=== PATIENT | female | born 1995 | race Caucasian/White ===

== ENCOUNTER → 2016-12-21 13:30 | Observation (INO) ==
[2016-12-21 12:50] LABS: Bilirubin,Urine Negative (Negative); Blood,Urine Negative (Negative); Clarity,Urine Cloudy (Clear); Color,Urine Yellow (Yellow); Glucose,Urine (UA) 100 mg/dL (Normal); Ketones,Urine Negative (Negative); Leukocyte Esterase,Urine Negative (Negative); Nitrite,Urine Negative (Negative); Protein,Urine Negative (Neg-Trace); Urobilinogen,Urine Normal (Normal)
[2016-12-21 12:52] LABS: Hyaline Casts,Urine None Seen per lpf (None-Few); RBC,Urine 0-3 per hpf (0-3); Squamous Epithelial Cell,Urine Many per lpf (None-Few)
[2016-12-21 13:05] LABS: Bacteria,Urine Few per hpf (None-Few)
--- NOTE | 2016-12-21 13:16 | Discharge Summary ---
Date of Encounter: 12/21/16 Time of Encounter: 13:16 - Discharge Diagnosis (1) Uterine contractions Priority: Primary Status: Acute Comments: Patient c/o irregular contractions for past 12 hours and diarrhea and some vomiting States positive movement. Denies headache, vaginal bleeding, vaginal discharge, epigastric pain, and visual disturbances. She is currently being treated for a UTI with antibiotics Urinalysis insignificant findings continue course of antibiotics Follow up in office as previously scheduled and as needed Discharge home with labor precautions and kick counts. (2) 35 weeks gestation of Priority: Secondary Status: Acute Comments: GBS collected. (3) NST (non-stress test) reactive Priority: Secondary Status: Acute Comments: FHTs 140's - 150's with moderate variability, 15 x 15 accels, and no decels TOCO 2 contractions noted. uterus palpated soft. Category I tracing - Discharge Medications Home Medications: Amoxicillin 875 mg PO BID #20 tablet 02/05/16 [Rx] Allergies/Adverse Reactions: Allergies No Known Allergies Allergy (Verified 06/05/16 23:09) Data Procedures and tests throughout hospitalization: Laboratory Tests 12/21/16 12:24 Urine Color Yellow Urine Clarity Cloudy A Urine pH 6.0 Ur Specific [place] 1.020 Urine Protein Negative Urine Glucose (UA) 100 H Urine Ketones Negative Urine Blood Negative Urine Nitrite Negative Urine Bilirubin Negative Urine Urobilinogen Normal Ur Leukocyte Esterase Negative Urine Microscopic RBC 0-3 Urine Microscopic WBC 3-5 H Ur Squamous Epith Cells Many H Urine Bacteria Few Hyaline Casts None Seen Ur Culture Indicated? NO Labs on day of discharge: Labs from last 24 hours 12/21/16 12:24 Urine Color Yellow Urine Clarity Cloudy A Urine pH 6.0 Ur Specific [place] 1.020 Urine Protein Negative Urine Glucose (UA) 100 H Urine Ketones Negative Urine Blood Negative Urine Nitrite Negative Urine Bilirubin Negative Urine Urobilinogen Normal Ur Leukocyte Esterase Negative Urine Microscopic RBC 0-3 Urine Microscopic WBC 3-5 H Ur Squamous Epith Cells Many H Urine Bacteria Few Hyaline Casts None Seen Ur Culture Indicated? NO Date of admission: 12/21/16 11:48 Primary care physician: PCP NO Discharging clinician: Lani Murillo Anticipated date of discharge: 12/21/16 - Patient Status Disposition: Home, Self-Care Condition: Good Functional capacity at discharge: independent ambulation Overall status at discharge: patient is back to baseline - Discharge Instructions Follow Up With: NO,PCP [Primary Care Provider] - Lani Murillo CNM [Advanced Practice Nurse] - Additional Instructions: LABOR AND DELIVERY DISCHARGE INSTRUCTIONS Signs and Symptoms to be Reported to your Doctor Immediately: * Sudden gush, continuous or intermittent lead of fluid from vagina (note the time of gush and color of fluid) * Onset of bright red vaginal bleeding with or without pain (if you had a vaginal exam during this visit you may notice some dark red spotting. This is normal.) * Lower abdominal cramping or backache that is premenstrual-like feeling. * More than 6 contractions in one hour. * Burning during urination, having to urinate more frequently or pain in your mid-back. * A change in the baby's activity. This could be an increase or decrease in activity. * Severe headache which does not go away with tylenol. * Sudden swelling in the face, hands, arms and/or legs. * Upper abdominal pain - sometimes associated with heartburn or nausea and is not relieved by Maalox, Mylanta or Tums. * Dizziness or blurred vision or visual disturbances (seeing stars/lights). * Kick Counts One hour after a meal, lay down on one side in a quiet place. Count the number of thomas the baby moves during an hour. If less than 6 movements, notify your physician. Diet: *Force fluids - 8-10 tall glasses of fluid per day. May include popsicles and jello. *Limit caffeine - this includes chocolate, coffee, tea, any soft drink containing such as all estephania, Omkar Yellow and Mountain Dew - Diet and Activity Activity: resume usual activities as tolerated Diet: regular diet Hospital Course P[facility] Time Attestation: Total time spent providing and/or coordinating discharge services: Time Spent: Less than 30 minutes Exam - Constitutional General appearance IM: cooperative, A&O X 3, pleasant - Respiratory Respiratory exam: Present: CTAB - Cardiovascular Cardiovascular exam IM: Present: RRR, +S1, +S2 - GI/Abdominal GI/Abdominal exam IM: normal bowel sounds, soft - Additional comments: Closed/thick/high per RN exam. - Extremities Exam Extremities exam IM: Present: normal capillary refill, normal inspection, radial pulses palpable and symetrical - Neurological Exam Neurological exam: alert, oriented X3, reflexes normal - VTE Reasons for not Prescribing Prophylaxis: Treatment not Indicated - Low risk for VTE
== END | disposition home or self-care (01) ==
LOC: 1NENULAB
PROVIDERS: ADMIT Obstetrics & Gynecology; ATTEND Obstetrics & Gynecology

== ENCOUNTER 2017-01-08 07:45 | Inpatient (IN) ==
[~2017-01-08 07:45] MED LIST: *HR* Nalbuphine 20 MG/ML AMPUL IVP PRN; Famotidine 20 MG/2 ML VIAL IVP PRN; Naloxone 0.4 MG/ML INJ IVP PRN; Ondansetron 4 MG/2 ML VIAL IVP PRN; Ringers Solution, Lactated 1,000 ML IVC SCH
--- NOTE | 2017-01-08 07:51 | OB/GYN History & Physical ---
Date of Encounter: 01/08/17 Time of Encounter: 07:47 Assessment and Plan (1) 38 weeks gestation of Current visit: Yes Status: Acute admit for delivery (2) Spontaneous rupture of membranes Current visit: Yes Status: Acute admit for delivery group B strep negative (3) Rubella non-immune status, antepartum Current visit: Yes Status: Acute MMR to be given prior to discharge History of Present Illness Chief complaint: SROM HPI: Ms. Rosales is a 21 year old female at 38w2d presents to labor and delivery with complaints of Spontaneous rupture of membranes. Patient reports water broke around 0530. Clear fluid. No vaginal bleeding. Denies feeling regular contractions. Patient reports +FM. Blood type: B Positive, Rubella: nonimmune, Hep B: nonreactive, GBS: Negative. Past Med Surg Social Fam HX - Past Medical History Source: patient Medical history: no medical history Psychiatric history: no psych history - Past Surgical History Surgical History: no surgical history - Social History Smoking Status: Former smoker Smokeless Tobacco Status: No Alcohol use: none Drug use: none Current living situation: Home - Independent Activity Level: Independent ambulation Recent Out of Country Travel Within the Last 8 Weeks: No Exposure or Possible Exposure to Illness During Travel: No - Family History Grandmother Living Status: Still Living Hx Family Cardiac Disorders: Yes Obstetrical History - Pregnancies : 1 Para: 0 Term: 0 : 0 Ab's: 0 Livin Medications and Allergies Ferrous Sulfate [Iron] 1 tab PO DAILY 01/08/17 [History] Vit/Iron Fumarate/FA [ Tablet] 1 tab PO DAILY 01/08/17 [History ] Allergies No Known Allergies Allergy (Verified 01/08/17 07:25) Review of System OB - Constitutional Constitutional ROS IM: no chills, no fever(s), no headache(s) - Cardiovascular Cardiovascular: no chest pain, no dyspnea, no edema, no lightheadedness, no palpitations, no pedal edema, no syncope - Respiratory Respiratory: no cough, no dyspnea - Gastrointestinal Gastrointestinal: no abdominal pain, no cramping, no diarrhea, no heartburn, no nausea, no vomiting - Genitourinary Genitourinary: vaginal discharge, no abnormal vaginal bleeding, no dysuria, no flank pain, no urinary frequency, no urinary hesitancy, no urinary incontinence , no urinary urgency, no vaginal odor Exam - Constitutional Constitutional: well developed, well nourished, no acute distress, average body habitus - HEENT HEENT: Normocephaly, Mucus Membranes Moist - Neck Neck exam: full ROM, supple - Lungs Respiratory exam: CTAB - Cardiovascular Cardiovascular exam: RRR, +S1, +S2 - Abdomen Abdomen: Present: bowel sounds normal, gravid, non tender - Extremities Extremities exam: full ROM, normal inspection Deep Tendon Reflex Grade: 2+ Normal - Cervix Dilation: 2 (PER RN) Effacement: 70 Station: -1 - Uterus Uterus exam: Present: normal size, normal contour - Anus/Rectum Anus/Rectum: Present: normal perianal skin - Comments Comments: FHR 125 bpm moderate variability +15x15 accels no decels noted. Contractions 2- 4 min apart. CAt. 1 tracing. Speculum exam: + pooling and + nitrazine. Results All other labs normal. - VTE Reasons for not Prescribing Prophylaxis: Treatment not Indicated - Low risk for VTE
[2017-01-08 08:14] LABS: Basophils % 0.3 %; Eosinophils # 0.1 K/mcL (0.0-0.6); Eosinophils % 0.4 %; Hematocrit 39.4 % (35.3-44.9); Hemoglobin 12.9 g/dL (11.5-15.4); Immature Granulocytes % 0.7 % (0-4); Lymphocytes % 15.1 %; Mean Corpuscular HGB Conc 32.7 g/dL (31.6-35.5); Mean Corpuscular Hemoglobin 30.1 pg (28.0-33.3); Mean Corpuscular Volume 91.8 fL (83.0-100.0); Monocytes # 0.9 K/mcL (0.0-1.3); Monocytes % 7.2 %; Neutrophils # 9.9 K/mcL (1.6-8.9); Platelet Count 192 K/mcL (140-400); Red Blood Count 4.29 M/mcL (3.82-4.97); Red Cell Distribution Width 13.4 % (11.5-14.5); Segmented Neutrophils % 76.3 %
--- NOTE | 2017-01-08 10:56 | OB Labor Progress Note ---
Date of Encounter: 01/08/17 Time of Encounter: 10:54 Labor Progress Note - Subjective Subjective: Patient nauseated at this time. FHR noted to decels and intrauterine resuscitation was started. - Cervix Cervix: 5/90/-1 - Heart Tones Heart Tones: 120 bpm moderate variability +15x15 accels prolonged decel noted. - [place]: 1-4 min apart - Interventions Interventions: SVE, FSE applied, O2 per mask, IV bolus started. Patient repositioned to left side. Dr. Mcclure notified - Plan Plan: Continue labor management.
--- NOTE | 2017-01-08 11:03 | Anesthesia Evaluation PreOp ---
Date of Encounter: 01/08/17 Time of Encounter: 11:04 - Past History Planned Operation: kalin Cardiac History: Denies any Significant Hx Pulmonary History: Former smoker [employer] History: Denies Any Significant HX Other Medical History: Denies Any Significant HX Anesthesia History: No Prior Anesthetic Complications, Past Anesthesia : Yes Alcohol Use: none Drug use: none Medications and Allergies Ferrous Sulfate [Iron] 1 tab PO DAILY 01/08/17 [History] Vit/Iron Fumarate/FA [ Tablet] 1 tab PO DAILY 01/08/17 [History ] Allergies No Known Allergies Allergy (Verified 01/08/17 07:25) - Meds/Allergy Pre-op Review Medications Reviewed: Yes Allergies Reviewed: Yes Beta Blockers on Current Med List: No (38 plus 2, ) Anesthesia Results - Labs 01/08/17 08:00 Anesthesia Exam O2 Sat Height 1.68 m Weight 84 kg Weight: 84 - HEENT Pupil (Motor): Pupils equal Mallampati: II Teeth: Normal Oral Opening: Greater than 3 - [employer] LOC: Oriented [employer] Motor: Normal RUE, Normal LUE, Normal RLE, Normal LLE, Normal Face [employer] Sensory: Normal: RUE, LUE, RLE, LLE, Face - Cardiac Rhythm: Regular Murmur: None JVD: No Carotid Bruit: No - Pulmonary Breath Sounds: bilateral Clear Respiratory Effort: Symmetrical Anesthesia Assess/Plan ASA Score: 2 Modified [place] Scale for Level of Consciousness: Cooperative, oriented, and tranquil Anesthetic Plan: Regional Monitoring Plan: Standard Monitors
[2017-01-08] MEDS ORDERED: *HR* FentaNYL (PF) 100 MCG/2 ML VIAL ONE (11:06)
[2017-01-08] MEDS ORDERED: *HR* Ropivacaine/PF 0.2% 10 ML AMPUL ONE (11:06)
[2017-01-08] MEDS ORDERED: Epidural Premix (fent/bupiv) 110 ML EP ONE ×2 (11:06→17:28)
[2017-01-08] MEDS ORDERED: Terbutaline 1 MG/ML VIAL SQ ONE ×2 (11:07→11:09)
[2017-01-08] MEDS ORDERED: *HR* FentaNYL (PF) 100 MCG/2 ML VIAL EP ONE (11:40)
[2017-01-08] MEDS ORDERED: *HR* Ropivacaine/PF 0.2% 10 ML AMPUL EP ONE (11:40)
[2017-01-08] MEDS ORDERED: EPHEDrine 50 MG/ML VIAL IVP PRN (11:40)
--- NOTE | 2017-01-08 11:44 | Anesthesia Procedures ---
Date of Encounter: 01/08/17 Time of Encounter: 11:42 Procedures: Anesthesia - Epidural/Spinal Patient ID/Chart reviewed: Yes Patient examined: Yes OB Eval: : 1 OB Eval: Hx Para: 0 OB Eval: Dilated at (cm): 5 OB Eval: Contractions: Non-stressed pattern Consent Obtained: Yes Supplemental Oxygen: Mask Supplemental Oxygen Rate (L/min): 6 Site Prep: Aseptic Technique Patient position: upright Local Anesthetic: Lidocaine 1% Amount of Local Anesthetic used: 3 Touhy Needle Gauge: 18 Touhy Needle Depth (cm): 6 Catheter Depth at Skin (cm): 12 Test Dose (1.5% Lido + Epi): Volume given (mls): 3 Test Dose Result: Negative Loading Dose: 0.25% Marcaine (mls): 6 Loading Dose: Fentanyl (mcg): 100 Loading Dose: Other: 2ml nss Loading Dose Administered: Thru Touhy Needle Infusion Med: 0.125% Bupivacaine w/ 2 mcg/ml Fentanyl Interspace Used: L2-L3 Loss of Resistance (ANDRZEJ): Yes Blood: No CSF: No
[2017-01-08] MEDS ORDERED: Epidural Premix (fent/bupiv) 110 ML EP SCH (11:45)
--- NOTE | 2017-01-08 12:36 | OB Labor Progress Note ---
Date of Encounter: 01/08/17 Time of Encounter: 12:33 Labor Progress Note - Subjective Subjective: Patient comfortable with epidural in place. Patient denies any questions or concerns. FSE not tracing, external EFM replaced on abdomen. - Cervix Cervix: 5.5/90/-1 - Heart Tones Heart Tones: 125 bpm moderate variability - [place]: 1-3.5 min apart - Interventions Interventions: SVE, repositioned - Plan Plan: Continue labor management.
--- NOTE | 2017-01-08 16:37 | OB Labor Progress Note ---
Date of Encounter: 01/08/17 Time of Encounter: 16:35 Labor Progress Note - Subjective Subjective: Patient resting, still comfortable with epidural in place. After repositioning FHR dropped. Patient was quickly repositioned back to right side with peanut ball. - Cervix Cervix: 8/100/+1 - Heart Tones Heart Tones: 125 bpm moderate variability +15x15 accels variable noted. - [place] Man[place]: 1-3 min apart - Interventions Interventions: SVE, repositioned - Plan Plan: Continue labor management.
[2017-01-08] MEDS ORDERED: Oxytocin 20 units/ LR 1000 mL 20 UNIT/1,000 ML BAG IVC ONE (18:51)
--- NOTE | 2017-01-08 19:36 | OB/GYN Procedure Note ---
Delivery - Delivery Date: 01/08/17 Provider: Warren Mcclure Intrapartum events: other(please specify) (Prolonged terminal bradycardia) Delivery induction: none Delivery monitor: internal FHT Anesthesia: epidural Estimated Blood Loss: 200 - (s) Infant A Delivery Date: 01/08/17 Delivery Time: 19:36 Presentation: vertex Position: OP Route of delivery: vacuum extraction Gender: Male Viability: Viable Pounds: 7 Ounces: 3 at 1 minute: 8 at 5 mins: 9 Shoulder Dystocia: not encountered Placenta: spontaneous Cord: 3 umbilical vessels - Repair Episiotomy: midline Laceration Description: Perineal - 3rd Degree (Partial 3rd degree laceration) - Complications Delivery complications: none - Disposition Mom disposition: stable in LDR disposition: stable in LDR - Comments Comments: Cord the bedside due to prolonged bradycardia to 70s 80s with baby at +4 station. Kiwi vacuum was applied due to terminal bradycardia. I did place an vacuum bladder was empty second-degree episiotomy was cut. First vacuum attempt had pop-off after approximate 5 seconds second vacuum attempt resulted in good progression of station then delivered from direct oh people presentation. There was a nuchal cord 2. Apgars twin B 8 at 1 minute and 9 at 5 minutes and weight was found to be 7 lbs. 3 oz. There was a partial laceration of the capsule of the muscle which was reapproximated with 2-0 Vicryl laceration was reapproximated with 3-0 Vicryl. EBL was 200 mL mother and infant recovered in labor and delivery room
[2017-01-08] MEDS ORDERED: Measles/Mumps/Rubella Vacc 0.5 ML VIAL SQ PRN (22:35)
[2017-01-08] MEDS ORDERED: Acetaminophen 325 MG TABLET PO PRN (22:35)
[2017-01-08] MEDS ORDERED: Benzocaine/Menthol 56 GM AEROSOL SPRAY TP PRN (22:35)
[2017-01-08] MEDS ORDERED: Oxytocin 20 units/ LR 1000 mL 20 UNIT/1,000 ML BAG IVC SCH (22:35)
[2017-01-08] MEDS ORDERED: Lanolin 7 G OINT...G. TP PRN (22:35)
[2017-01-09] MEDS: *HR* HYDROcodone/Acet 5/325 mg TABLET PO PRN ×2 (04:21→16:39)
[2017-01-09] MEDS: Ibuprofen 600 MG TABLET PO PRN ×2 (05:34→20:15)
--- NOTE | 2017-01-09 08:18 | OB/GYN Progress Note ---
Date of Encounter: 01/09/17 Time of Encounter: 08:15 - Assessment and Plan (1) Vaginal delivery Current Visit: Yes Status: Acute Meeting all milestones. Continue routine care. Anticipate DC in AM, but patient may dc tonight if desires. Subjective - Subjective Interval history: states feels well, pain well managed on po pain medication. bleeding is decreasing. no complaints. Patient reports: appetite normal, voiding normally, pain well controlled, ambulating normally : doing well Objective - Latest Vital Signs Latest vital signs: Vital Signs Temp Pulse Resp BP Pulse Ox 01/09/17 04:17 97.9 F 91 16 113/74 97 01/09/17 00:15 98.1 F 89 16 112/74 97 01/08/17 23:07 97.8 F 102 18 111/72 98 01/08/17 22:20 98.2 F 102 16 108/77 96 Intake and Output 01/08/17 01/09/17 01/09/17 23:59 07:59 15:59 Intake Total 0 / 0 Output Total 900 / 900 1150 / 1150 Balance -900 / -900 -1150 / -1150 Intake: Oral 0 / 0 Output: Urine 700 / 700 1150 / 1150 Catheter 200 / 200 Other: Weight 80.5 kg 80 kg Patient Weight 01/09/17 23:59 Weight 80 kg - Exam Lungs: bilateral: normal Chest: Normal S1, Normal S2 Extremities: Present: normal Abdomen: Present: normal appearance, soft Uterus: Present: normal, firm Uterus Position: At Umbilicus, Midline - Labs Labs: Laboratory Results - last 24 hr 01/08/17 08:00 WBC 13.0 H RBC 4.29 Hgb 12.9 Hct 39.4 MCV 91.8 MCH 30.1 MCHC 32.7 RDW 13.4 Plt Count 192 MPV 12.0 Immature Gran % 0.7 Seg Neutrophils % 76.3 Lymphocytes % 15.1 Monocytes % 7.2 Eosinophils % 0.4 Basophils % 0.3 Neutrophils # 9.9 H Lymphocytes # 2.0 Monocytes # 0.9 Eosinophils # 0.1 Basophils # 0.0
[2017-01-09] MEDS: Prenatal Vit/FA 1 EACH TABLET PO SCH (09:55)
[2017-01-10] MEDS: Ibuprofen 600 MG TABLET PO PRN ×3 (06:35→06:44)
--- NOTE | 2017-01-10 08:19 | Discharge Summary ---
Date of Encounter: 01/10/17 Time of Encounter: 08:17 - Discharge Diagnosis (1) 38 weeks gestation of Priority: Secondary Status: Acute (2) Spontaneous rupture of membranes Priority: Secondary Status: Acute (3) Rubella non-immune status, antepartum Priority: Secondary Status: Acute Comments: MMR prior to discharge (4) Status post vaginal delivery Priority: Primary Status: Acute Comments: continue routine care discharge home today (5) Breast feeding status of mother Priority: Secondary Status: Acute Comments: support prn - Discharge Medications Prescriptions: Ibuprofen [Motrin] 600 mg PO Q6HR PRN #60 tablet PRN Reason: Cramping Breast Pump [BREAST PUMP] 1 each .ROUTE AD #1 each Docusate [Colace] 100 mg PO BID #60 capsule Home Medications: Vit/Iron Fumarate/FA [ Tablet] 1 tab PO DAILY 01/08/17 [History ] Breast Pump [BREAST PUMP] 1 each .ROUTE AD #1 each 01/10/17 [Rx] Docusate [Colace] 100 mg PO BID #60 capsule 01/10/17 [Rx] Ibuprofen [Motrin] 600 mg PO Q6HR PRN #60 tablet 01/10/17 [Rx] Vit/FA 1 each PO DAILY tablet 01/10/17 [Rx] Allergies/Adverse Reactions: Allergies No Known Allergies Allergy (Verified 01/08/17 07:25) Data Procedures and tests throughout hospitalization: Laboratory Tests 01/08/17 08:00 WBC 13.0 H RBC 4.29 Hgb 12.9 Hct 39.4 MCV 91.8 MCH 30.1 MCHC 32.7 RDW 13.4 Plt Count 192 MPV 12.0 Immature Gran % 0.7 Seg Neutrophils % 76.3 Lymphocytes % 15.1 Monocytes % 7.2 Eosinophils % 0.4 Basophils % 0.3 Neutrophils # 9.9 H Lymphocytes # 2.0 Monocytes # 0.9 Eosinophils # 0.1 Basophils # 0.0 Date of admission: 01/08/17 07:45 Primary care physician: PCP NO Consults: 01/08/17 22:35 Consult to Lidding Machine Operator [CONS] Routine Comment: Vaginal delivery, consult needed Discharging clinician: Yolis Theodore Anticipated date of discharge: 01/10/17 - Patient Status Disposition: Home, Self-Care Condition: Good Functional capacity at discharge: independent ambulation - Discharge Instructions Follow Up With: NO,PCP [Primary Care Provider] - Yolis Theodore CNM [Non-Partnered Physician] - - Diet and Activity Activity: increase activity as tolerated Diet: regular diet Hospital Course Reason for admission: rupture of membranes Delivery: vacuum extraction Episiotomy: midline Laceration: 3rd degree Other procedures: none complications: none Discharge diagnosis: IUP at term delivered [place] baby: male (breast feeding) Time Attestation: Total time spent providing and/or coordinating discharge services: Time Spent: Less than 30 minutes Exam - Constitutional Vitals: Temp Pulse Resp BP Pulse Ox 98.3 F 94 16 122/78 98 01/09/17 19:56 01/09/17 19:56 01/09/17 19:56 01/09/17 19:56 01/09/17 19:56 General appearance IM: A&O X 3, pleasant, answers questions appropriately - Respiratory Respiratory exam: Present: CTAB - Cardiovascular Cardiovascular exam IM: Present: RRR, +S1, +S2 - GI/Abdominal GI/Abdominal exam IM: normal bowel sounds - Uterine Tone: Firm Uterus Position: 2 Fingers Below Umbilicus, Midline - Extremities Exam Extremities exam IM: Present: full ROM, normal capillary refill, normal inspection - Neurological Exam Neurological exam: alert, oriented X3, reflexes normal
[2017-01-10] MEDS: Prenatal Vit/FA 1 EACH TABLET PO SCH (10:03)
[2017-01-10 12:45] VITALS: BP 93/61
== END 2017-01-10 17:05 | disposition home or self-care (01) | DRG 542 ==
LOC: 1NENULAB → 1NENUOBS 22:30
PROVIDERS: ADMIT Advanced Practice Midwife; ATTEND Advanced Practice Midwife

== ENCOUNTER 2017-11-18 09:41 | Observation (INO) ==
[2017-11-18 10:45] LABS: Bilirubin,Urine Negative (Negative); Blood,Urine Negative (Negative); Color,Urine Yellow (Yellow); Glucose,Urine (UA) 100 mg/dL (Normal); Ketones,Urine Trace mg/dL (Negative); Leukocyte Esterase,Urine Moderate (Negative); Nitrite,Urine Negative (Negative); Protein,Urine Trace mg/dL (Neg-Trace); Urobilinogen,Urine Normal (Normal)
[2017-11-18 10:48] LABS: Bacteria,Urine Few per hpf (None-Few); Hyaline Casts,Urine Few per lpf (None-Few); Squamous Epithelial Cell,Urine Many per lpf (None-Few); WBC,Urine 30-50 per hpf (0-3)
[2017-11-18 10:51] LABS: Amphetamine Screen,Urine Negative ng/mL (Cutoff=1000); Barbiturate Screen,Urine Negative ng/mL (Cutoff=200); Benzodiazepines Screen,Urine Negative ng/mL (Cutoff=200); Cannabinoid Screen,Urine Negative ng/mL (Cutoff = 50); Cocaine Screen,Urine Negative ng/mL (Cutoff= 300); Opiate Screen,Urine Negative ng/mL (Cutoff=300); Phencyclidine Screen,Urine Negative ng/mL (Cutoff=25)
[2017-11-18 10:54] LABS: Clarity,Urine Slightly Cloudy (Clear)
[2017-11-18 11:06] LABS: RBC,Urine 0-3 per hpf (0-3)
--- NOTE | 2017-11-18 11:49 | OB/GYN Progress Note ---
Date of Encounter: 11/18/17 Time of Encounter: 11:41 - Assessment and Plan (1) 29 weeks gestation of Current Visit: Yes Status: Acute Urinalysis WNL No contractions per EFM Reactive NST Discharge home with PTL precautions Follow up in office as scheduled for routine care and prn (2) Abdominal cramping Current Visit: Yes Status: Acute Subjective - Subjective Principal diagnosis: Cramping Interval history: 22 year old at 29.0 weeks gestation sent to triage from office with reports cramping. VE in office 1 cm dilated. Currently treating for yeast infection, unable to complete FFN today. Positive movement, no vaginal bleeding, no leaking fluid. Objective - Vital Signs Vital Signs: Intake and Output 11/17/17 11/18/17 11/18/17 23:59 07:59 15:59 Other: Weight 76 kg Patient Weight 11/18/17 23:59 Weight 76 kg - Exam FHR: category 1 FHR comments: FHR [id number] Auscultation: bilateral: normal Abdomen: Present: soft, gravid Uterus: Present: normal. Absent: tenderness - Labs Labs: Abnormal lab results Urine Clarity Slightly Cloudy (Clear) A 11/18/17 10:22 Ur Specific [place] 1.030 (1.010-1.025) H 11/18/17 10:22 Urine Glucose (UA) 100 mg/dL (Normal) H 11/18/17 10:22 Urine Ketones Trace mg/dL (Negative) H 11/18/17 10:22 Ur Leukocyte Esterase Moderate (Negative) H 11/18/17 10:22 Urine Microscopic WBC 30-50 per hpf (0-3) H 11/18/17 10:22 Ur Squamous Epith Cells Many per lpf (None-Few) H 11/18/17 10:22
== END 2017-11-18 12:04 | disposition home or self-care (01) ==
LOC: 1NENULAB
PROVIDERS: ADMIT Obstetrics & Gynecology; ATTEND Obstetrics & Gynecology

== ENCOUNTER 2017-11-26 23:16 | Observation (INO) ==
--- NOTE | 2017-11-26 23:40 | OB/GYN Progress Note ---
Date of Encounter: 11/26/17 Time of Encounter: 23:36 - Assessment and Plan (1) 30 weeks gestation of Current Visit: Yes Status: Acute (2) Encounter for suspected PROM, with rupture of membranes not found Current Visit: Yes Status: Acute Speculum exam shows thick yellow white discharge similar to that of a yeast infection. Nitrazine negative, fern negative Will discharge home with labor and when to return to triage precautions We will give prescription for Terazol 7 cream (3) Abdominal cramping Current Visit: Yes Status: Acute Cervical exam remains unchanged from last and office exam of Subjective - Subjective Interval history: 30+1 day's gestation. Reports to triage with complaints of leaking since 3 PM. Patient states since 3 PM she is noticed a small amount leaking, not enough to saturate a pad but she does feel damp, and think she is leaking a thin discharge. Patient reports yeast infection type symptoms of vaginal itching and thicker discharge noted over the last 4 days. Patient states she used remnants of Terazol cream night before last internally and externally. Reports good movement, and states has been having some occasional cramping sensation, denies vaginal bleeding Antepartum ROS: loss of fluid, movement normal, other (Cramping), no vaginal bleeding, no contractions Objective - Exam FHR: auscultation normal FHR comments: Baseline 125 Abdomen: Present: normal appearance, soft, gravid Cervical dilation: /-3
[2017-11-27 00:10] LABS: Bilirubin,Urine Negative (Negative); Blood,Urine Negative (Negative); Clarity,Urine Cloudy (Clear); Color,Urine Yellow (Yellow); Glucose,Urine (UA) Normal (Normal); Ketones,Urine Negative (Negative); Leukocyte Esterase,Urine Small (Negative); Nitrite,Urine Negative (Negative); PH,Urine 6.5 pH Units (5.0-8.0); Protein,Urine Negative (Neg-Trace); Specific Gravity,Urine > 1.030 (1.010-1.025); Urobilinogen,Urine Normal (Normal)
[2017-11-27 00:12] LABS: Hyaline Casts,Urine None Seen per lpf (None-Few); Squamous Epithelial Cell,Urine Many per lpf (None-Few); WBC,Urine 15-30 per hpf (0-3)
[2017-11-27 00:23] LABS: Bacteria,Urine Few per hpf (None-Few); RBC,Urine 0-3 per hpf (0-3)
[2017-11-27 01:49] LABS: Amphetamine Screen,Urine Negative ng/mL (Cutoff=1000); Barbiturate Screen,Urine Negative ng/mL (Cutoff=200); Benzodiazepines Screen,Urine Negative ng/mL (Cutoff=200); Cannabinoid Screen,Urine Negative ng/mL (Cutoff = 50); Cocaine Screen,Urine Negative ng/mL (Cutoff= 300); Opiate Screen,Urine Negative ng/mL (Cutoff=300); Phencyclidine Screen,Urine Negative ng/mL (Cutoff=25)
== END 2017-11-27 00:18 | disposition home or self-care (01) ==
LOC: 1NENULAB
PROVIDERS: ADMIT Advanced Practice Midwife; ATTEND Advanced Practice Midwife

== ENCOUNTER 2017-12-23 13:33 | Observation (INO) ==
--- NOTE | 2017-12-23 15:01 | OB/GYN Progress Note ---
Date of Encounter: 12/23/17 Time of Encounter: 14:57 - Assessment and Plan (1) 34 weeks gestation of Current Visit: Yes Status: Acute Follow-up as scheduled Discharge home (2) Vaginal discharge during in third trimester Current Visit: Yes Status: Acute Vaginosis panel results negative Pelvic rest 1 week (3) NST (non-stress test) reactive Current Visit: Yes Status: Acute Subjective - Subjective Principal diagnosis: vaginal discharge Interval history: Ms. Rosales is a 22-year-old 34 weeks 0 days gestation who presents with complaints of vaginal bleeding for the last 2 days. She states that starting yesterday she had a dark brown "blood-like"discharge followed by clear discharge. She also reports she was recently treated for yeast infection. Last intercourse was 1 week ago. Last night she reports some mild cramping that continued into this morning but has now resolved. Antepartum ROS: new complaints, vaginal bleeding, movement normal, no loss of fluid, no contractions Objective - Exam FHR: category 1 FHR comments: Baseline 130 Moderate variability Accelerations present 15 x 15 No decelerations .FHR category I Auscultation: bilateral: normal Abdomen: Present: normal appearance, soft, gravid Uterus: Present: normal, firm
[2017-12-23 15:29] LABS: Bilirubin,Urine Negative (Negative); Blood,Urine Negative (Negative); Color,Urine Yellow (Yellow); Glucose,Urine (UA) Normal (Normal); Ketones,Urine Negative (Negative); Leukocyte Esterase,Urine Small (Negative); Nitrite,Urine Negative (Negative); PH,Urine 6.5 pH Units (5.0-8.0); Protein,Urine Negative (Neg-Trace); Specific Gravity,Urine 1.017 (1.010-1.025); Urobilinogen,Urine Normal (Normal)
[2017-12-23 15:30] LABS: Bacteria,Urine Few per hpf (None-Few); Hyaline Casts,Urine None Seen per lpf (None-Few); Squamous Epithelial Cell,Urine Many per lpf (None-Few)
[2017-12-23 15:34] LABS: Amphetamine Screen,Urine Negative ng/mL (Cutoff=1000); Barbiturate Screen,Urine Negative ng/mL (Cutoff=200); Benzodiazepines Screen,Urine Negative ng/mL (Cutoff=200); Cannabinoid Screen,Urine Negative ng/mL (Cutoff = 50); Cocaine Screen,Urine Negative ng/mL (Cutoff= 300); Opiate Screen,Urine Negative ng/mL (Cutoff=300); Phencyclidine Screen,Urine Negative ng/mL (Cutoff=25)
[2017-12-23 15:38] LABS: Clarity,Urine Clear (Clear)
[2017-12-23 15:53] LABS: RBC,Urine 0-3 per hpf (0-3)
[2017-12-23 16:08] LABS: Candida DNA Not Detected (Not Detect); Gardnerella DNA Not Detected (Not Detect); Trichomonas DNA Not Detected (Not Detect)
== END 2017-12-23 16:25 | disposition home or self-care (01) ==
LOC: 1NENULAB
PROVIDERS: ADMIT Obstetrics & Gynecology; ATTEND Obstetrics & Gynecology

== ENCOUNTER 2018-01-10 05:54 | Inpatient (IN) ==
[2018-01-10 05:46] LABS: Basophils % 0.1 %; Eosinophils # 0.1 K/mcL (0.0-0.6); Eosinophils % 0.4 %; Hemoglobin 10.8 g/dL (11.5-15.4); Immature Granulocytes % 0.5 % (0-4); Lymphocytes # 2.1 K/mcL (0.6-4.6); Mean Corpuscular HGB Conc 33.8 g/dL (31.6-35.5); Mean Corpuscular Hemoglobin 29.3 pg (28.0-33.3); Mean Corpuscular Volume 86.7 fL (83.0-100.0); Monocytes # 0.7 K/mcL (0.0-1.3); Monocytes % 6.5 %; Neutrophils # 8.3 K/mcL (1.6-8.9); Platelet Count 187 K/mcL (140-400); Red Blood Count 3.69 M/mcL (3.82-4.97); Red Cell Distribution Width 13.2 % (11.5-14.5); Segmented Neutrophils % 73.5 %
[~2018-01-10 05:54] MED LIST changes: -*HR* Nalbuphine 20 MG/ML AMPUL IVP PRN; -Famotidine 20 MG/2 ML VIAL IVP PRN; -Naloxone 0.4 MG/ML INJ IVP PRN; -Ondansetron 4 MG/2 ML VIAL IVP PRN; -Ringers Solution, Lactated 1,000 ML IVC SCH; +Ringers Solution, Lactated 1,000 ML ONE
[2018-01-10] MEDS ORDERED: Ringers Solution, Lactated 1,000 ML ONE (05:55)
[2018-01-10] MEDS ORDERED: Naloxone 0.4 MG/ML INJ IVP PRN (05:57)
[2018-01-10] MEDS ORDERED: Metoclopramide 10 MG/2 ML VIAL IVP PRN (05:57)
[2018-01-10] MEDS ORDERED: Famotidine 20 MG/2 ML VIAL IVP PRN (05:57)
[2018-01-10] MEDS ORDERED: Ondansetron 4 MG/2 ML VIAL IVP PRN (05:57)
[2018-01-10] MEDS ORDERED: Ringers Solution, Lactated 1,000 ML IVC SCH (06:00)
[2018-01-10] MEDS ORDERED: Oxytocin 20 units/ LR 1000 mL 20 UNIT/1,000 ML BAG IVC ONE ×2 (06:02→10:52)
[2018-01-10] MEDS ORDERED: *HR* FentaNYL (PF) 100 MCG/2 ML VIAL EP ONE (06:03)
[2018-01-10] MEDS ORDERED: *HR* FentaNYL (PF) 100 MCG/2 ML VIAL ONE (06:05)
[2018-01-10] MEDS ORDERED: Epidural Premix (fent/bupiv) 110 ML EP ONE (06:06)
[2018-01-10] MEDS ORDERED: Epidural Premix (fent/bupiv) 110 ML EP SCH (06:15)
[2018-01-10] MEDS ORDERED: Lidocaine -MPF 2% 5 ML VIAL ONE ×2 (06:23)
--- NOTE | 2018-01-10 06:48 | Anesthesia Evaluation PreOp ---
Date of Encounter: 01/10/18 Time of Encounter: 06:00 - Past History Planned Operation: kalin Cardiac History: Denies any Significant Hx Pulmonary History: Denies Any Significant HX STRATEGIC SOURCING CONSULTANT History: Denies Any Significant HX Other Medical History: GERD Anesthesia History: No Prior Anesthetic Complications, Past Anesthesia (kalin) : Yes Test: Positive Alcohol Use: none Drug use: cocaine, marijuana Medications and Allergies Vit/Iron Fumarate/FA [ Tablet] 1 each PO DAILY #30 tablet 05/30 [Rx] 3 Allergy/AdvReac Type Severity Reaction Status Date / Time No Known Allergies Allergy Verified 01/10/18 05:47 - Meds/Allergy Pre-op Review Medications Reviewed: Yes Allergies Reviewed: Yes Beta Blockers on Current Med List: No Anesthesia Results - Labs 01/10/18 05:16 Anesthesia Exam 124/78 65 fht 133 Height: 5'6" Weight: 174 NPO (# of Hours): 2 Pain Scale: 8 Pain Scale Used: Numeric (1 - 10) - HEENT Pupil (Motor): Pupils equal Mallampati: II Teeth: Normal Oral Opening: Greater than 3 - STRATEGIC SOURCING CONSULTANT LOC: Oriented STRATEGIC SOURCING CONSULTANT Motor: Normal RUE, Normal LUE, Normal RLE, Normal LLE, Normal Face STRATEGIC SOURCING CONSULTANT Sensory: Normal: RUE, LUE, RLE, LLE, Face - Cardiac Rhythm: Regular Murmur: None - Pulmonary Breath Sounds: bilateral Clear Respiratory Effort: Symmetrical Anesthesia Assess/Plan ASA Score: 2 Modified Cindy Scale for Level of Consciousness: Cooperative, oriented, and tranquil Anesthetic Plan: Regional Monitoring Plan: Standard Monitors Recovery Plan: Other (risk discussed questions answered, consented)
--- NOTE | 2018-01-10 06:51 | Anesthesia Procedures ---
Date of Encounter: 01/10/18 Time of Encounter: 06:49 Procedures: Anesthesia - Epidural/Spinal Patient ID/Chart reviewed: Yes Patient examined: Yes OB Eval: Gestational age: 40 OB Eval: : 2 OB Eval: Hx Para: 1 OB Eval: Dilated at (cm): 8 OB Eval: Contractions: Non-stressed pattern Consent Obtained: Yes Supplemental Oxygen: None/Room Air Site Prep: Aseptic Technique, Sterile prep and drape, 0.5% Chlorhexidine/Alcohol Patient position: upright Local Anesthetic: Lidocaine 1% Amount of Local Anesthetic used: 3 Touhy Needle Gauge: 18 Touhy Needle Depth (cm): 7 Catheter Depth at Skin (cm): 15 (first cath w heme) Test Dose (1.5% Lido + Epi): Volume given (mls): 3 Test Dose Result: Negative Loading Dose: Fentanyl (mcg): 100 Loading Dose: Other: rop 0.2% 10cc Loading Dose Administered: Thru Touhy Needle Infusion Med: 0.125% Bupivacaine w/ 2 mcg/ml Fentanyl Infusion Rate (mls/hr): [address]: Tegaderm Interspace Used: L3-L4 Loss of Resistance (ANDRZEJ): Yes Blood: No CSF: No Paresthesia: No Procedure: aseptic, tolerated well, vss, effective
--- NOTE | 2018-01-10 06:58 | OB/GYN History & Physical ---
Date of Encounter: 01/10/18 Time of Encounter: 06:52 Assessment and Plan (1) 36 weeks gestation of Current visit: Yes Status: Acute Admit for labor Patient has epidural in place Consider AROM GBS negative Anticipate vaginal delivery POC per consult with Dr Mckeon. History of Present Illness Chief complaint: Contractions HPI: Ms. Rosales is a at 36 weeks 4 days that presents to labor and delivery with c/o contractions that began at 0400 this morning. This was complicated by short interval between pregnancies. She states positive movement. She denies headache, vision changes, epigastric pain, and vaginal bleeding. Labs GBS negative Hep B NR HIV NR RPR neg Rubella negative (non-immune) Varicella positive Blood type B+ Initial drug screen ETOH, Cocaine, and Marijuana Past Med Surg Social Fam HX - Past Medical History Medical history: no medical history Psychiatric history: no psych history - Past Surgical History Surgical History: no surgical history - Social History Smoking Status: Never smoker Smokeless Tobacco Status: No Alcohol use: none Drug use: cocaine, marijuana - Family History Grandmother Adopted: No Living Status: Still Living Hx Family Cardiac Disorders: Yes (pacemaker) Hx Family Respiratory Disorders: No Hx Family Cancer: No Hx Family GI Disorders: No Hx Family Endocrine Disorder: No Hx Family Neuromuscular Disorders: No Hx Family Neurologic Disorders: No Hx Family HEENT Disorders: No Hx Family Autoimmune Disorders: No Obstetrical History - Pregnancies : 2 Para: 1 Term: 1 : 0 Ab's: 0 Livin Medications and Allergies Vit/Iron Fumarate/FA [ Tablet] 1 each PO DAILY #30 tablet 05/30 [Rx] 3 Allergy/AdvReac Type Severity Reaction Status Date / Time No Known Allergies Allergy Verified 01/10/18 05:47 Review of System OB All systems PM: reviewed and no additional remarkable complaints except as stated Exam - Constitutional Constitutional: well developed, well nourished, no acute distress, average body habitus - HEENT HEENT: Normocephaly, Mucus Membranes Moist - Lungs Respiratory exam: CTAB - Cardiovascular Cardiovascular exam: RRR, +S1, +S2 - Abdomen Abdomen: Present: bowel sounds normal, gravid, non tender - Extremities Extremities exam: normal capillary refill, normal inspection, radial pulses palpable and symmetrical Deep Tendon Reflex Grade: 2+ Normal - Vulva Vulva: bilateral: normal - Vagina Vagina: Present: normal moisture - Cervix Dilation: 8 (per RN exam) Effacement: 100 Station: 0 Results Result Diagrams: 01/10/18 05:16 Abnormal lab results WBC 11.3 K/mcL (4.3-11.1) H 01/10/18 05:16 RBC 3.69 M/mcL (3.82-4.97) L 01/10/18 05:16 Hgb 10.8 g/dL (11.5-15.4) L 01/10/18 05:16 Hct 32.0 % (35.3-44.9) L 01/10/18 05:16 All other labs normal. - VTE Reasons for not Prescribing Prophylaxis: Treatment not Indicated - Low risk for VTE
--- NOTE | 2018-01-10 09:34 | OB/GYN Procedure Note ---
Delivery - Delivery Date: 01/10/18 Provider: Lani Kidd Intrapartum events: abruption (partial) Delivery induction: none Delivery monitor: external FHT, external uterine Anesthesia: epidural Quantitated Blood Loss: 150 - Infant (s) A Infant Delivery Date: 01/10/18 Delivery Time: 09:05 Presentation: vertex Position: ROP Route of delivery: Gender: Male Viability: Viable Pounds: 6 Ounces: 11 at 1 minute: 8 at 5 mins: 9 Shoulder Dystocia: not encountered Specimens collected: cord blood Placenta: spontaneous Cord: 3 umbilical vessels - Repair Episiotomy: none Laceration Description: Labial (right) - Complications Delivery complications: placenta abruption (partial) Delivery comments: is a 22-year-old G2 now P1102 who is admitted for active labor. She progressed spontaneously to the second stage of labor. She pushed for about half an hour. She delivered a viable male , ROP over an intact perineum. was placed on the maternal abdomen and allowed to transition spontaneously. No nuchal cord was identified and no shoulder dystocia was encountered. scores were 8 at 1 minute and 9 at 5 minutes. The weighed 6 lbs. 11 oz. The placenta delivered (Chang) spontaneously, with a partial abruption noted and a three-vessel cord. Inspection revealed a right labial tear. The laceration was repaired with a 4-0 Vicryl. The uterus was firm with no active bleeding. The repair was done under epidural anesthesia. EBL was 150 mL. Placenta and umbilical artery blood gases were not sent. There were no complications during the procedure. Mom and baby are her skin to skin following delivery. - Disposition Mom disposition: stable in LDR disposition: stable in LDR
[2018-01-10 11:51] LABS: Amphetamine Screen,Urine Negative ng/mL (Cutoff=1000); Barbiturate Screen,Urine Negative ng/mL (Cutoff=200); Benzodiazepines Screen,Urine Negative ng/mL (Cutoff=200); Cannabinoid Screen,Urine Negative ng/mL (Cutoff = 50); Cocaine Screen,Urine Negative ng/mL (Cutoff= 300); Opiate Screen,Urine Negative ng/mL (Cutoff=300); Phencyclidine Screen,Urine Negative ng/mL (Cutoff=25)
[2018-01-10] MEDS ORDERED: Measles/Mumps/Rubella Vacc 0.5 ML VIAL SQ PRN (11:57)
[2018-01-10] MEDS ORDERED: Benzocaine/Menthol 56 GM AEROSOL SPRAY TP PRN (11:57)
[2018-01-10] MEDS ORDERED: Oxytocin 20 units/ LR 1000 mL 20 UNIT/1,000 ML BAG IVC SCH (11:57)
[2018-01-10] MEDS ORDERED: Acetaminophen 325 MG TABLET PO PRN (11:57)
[2018-01-10] MEDS: Ibuprofen 600 MG TABLET PO PRN ×2 (13:47→21:46)
[2018-01-11] MEDS: Ibuprofen 600 MG TABLET PO PRN (05:29)
[2018-01-11 08:06] VITALS: BP 94/65
--- NOTE | 2018-01-11 08:41 | Discharge Summary ---
Date of Encounter: 01/11/18 Time of Encounter: 08:35 - Discharge Diagnosis (1) Vaginal delivery Priority: Primary Status: Acute Comments: Doing well. States baby not latching well and has been supplementing with formula. Voiding and ambulating without difficulty. Tolerating regular diet well. States abdominal cramping mild and well controlled with Ibuprofen. Baby will not be dischaarged today, will discharge [facility] status at patient request. (2) 36 weeks gestation of Priority: Secondary Status: Acute - Discharge Medications Prescriptions: Ibuprofen [Motrin] 600 mg PO Q6HR PRN #30 tablet PRN Reason: Cramping Home Medications: Vit/Iron Fumarate/FA [ Tablet] 1 each PO DAILY #30 tablet 05/30 [Rx] Acetaminophen [Tylenol] 650 mg PO Q6HR PRN tablet 01/11/18 [Rx] Benzocaine/Menthol [place] [Dermoplast [place]] 1 appl TP QID PRN aerosol 01/11/18 [Rx] Ibuprofen [Motrin] 600 mg PO Q6HR PRN #30 tablet 01/11/18 [Rx] Allergies/Adverse Reactions: 3 Allergy/AdvReac Type Severity Reaction Status Date / Time No Known Allergies Allergy Verified 01/10/18 05:47 Data Procedures and tests throughout hospitalization: Laboratory Tests 01/10/18 01/10/18 01/10/18 04:55 05:16 05:16 WBC 11.3 H RBC 3.69 L Hgb 10.8 L Hct 32.0 L MCV 86.7 MCH 29.3 MCHC 33.8 RDW 13.2 Plt Count 187 MPV 12.0 Immature Gran % 0.5 Seg Neutrophils % 73.5 Lymphocytes % 19.0 Monocytes % 6.5 Eosinophils % 0.4 Basophils % 0.1 Neutrophils # 8.3 Lymphocytes # 2.1 Monocytes # 0.7 Eosinophils # 0.1 Basophils # 0.0 Urine Opiates Screen Negative Ur Barbiturates Screen Negative Ur Phencyclidine Scrn Negative Ur Amphetamines Screen Negative U Benzodiazepines Scrn Negative Urine Cocaine Screen Negative U Marijuana (THC) Screen Negative Blood Type B POSITIVE Antibody Screen NEGATIVE Labs on day of discharge: Labs from last 24 hours 01/10/18 04:55 Urine Opiates Screen Negative Ur Barbiturates Screen Negative Ur Phencyclidine Scrn Negative Ur Amphetamines Screen Negative U Benzodiazepines Scrn Negative Urine Cocaine Screen Negative U Marijuana (THC) Screen Negative Date of admission: 01/10/18 05:57 Primary care physician: PCP NONE Consults: 01/10/18 11:57 Consult to Lead Auditor [CONS] Routine Comment: Vaginal delivery, consult needed Discharging clinician: Lani Murillo Anticipated date of discharge: 01/11/18 - Patient Status Disposition: Home, Self-Care Condition: Good Functional capacity at discharge: independent ambulation Overall status at discharge: patient is progressing back to baseline - Discharge Instructions Follow Up With: NONE,PCP [Primary Care Provider] - Lani Kidd [Advanced Practice Nurse] - - Diet and Activity Activity: resume usual activities as tolerated Diet: advance to your usual diet Hospital Course Reason for admission: active labor Delivery: Episiotomy: none Laceration: other (Right labial laceration) Other procedures: none complications: none Discharge diagnosis: delivery [place] baby: male Time spent discussing smoking cessation with patient: 3 to 10 minutes Time Attestation: Total time spent providing and/or coordinating discharge services: Time Spent: Less than 30 minutes Exam - Constitutional Vitals: Temp Pulse Resp BP Pulse Ox 98.6 F 86 16 94/65 99 01/11/18 08:05 01/11/18 08:05 01/11/18 08:13 01/11/18 08:05 01/11/18 08:05 General appearance IM: cooperative, A&O X 3, pleasant, answers questions appropriately - Respiratory Respiratory exam: Present: CTAB - Cardiovascular Cardiovascular exam IM: Present: RRR - GI/Abdominal GI/Abdominal exam IM: normal bowel sounds - Rectal Rectal exam: deferred - Uterine Tone: Firm Uterus Position: 1 Finger Below Umbilicus, Midline - Extremities Exam Extremities exam IM: Present: full ROM, normal inspection, radial pulses palpable and symmetrical - Neurological Exam Neurological exam: alert, normal gait, oriented X3
[2018-01-11] MEDS ORDERED: Prenatal Vit/FA 1 EACH TABLET PO SCH (09:00)
== END 2018-01-11 10:40 | disposition home or self-care (01) | DRG 560 ==
LOC: 1NENULAB → 1NENUOBS 11:48
PROVIDERS: ADMIT Advanced Practice Midwife; ATTEND Advanced Practice Midwife